=== PATIENT | male | born 1980 | race Hispanic/Latino ===

== ENCOUNTER 2017-05-07 13:24 | Emergency (ER) | payer OTHER ==
[~2017-05-07] VITALS: Ht 190.5 cm; Wt 72.6 kg
[2017-05-07 14:34] LABS: ABSOLUTE BASOPHIL COUNT 0.1 /CUMM (0.0-0.2); ABSOLUTE EOSINOPHIL COUNT 0.1 /CUMM (0.0-0.7); ABSOLUTE GRANULOCYTE CT 8.9 /CUMM (1.4-6.5); ABSOLUTE LYMPH COUNT 2.1 /CUMM (1.2-3.4); ABSOLUTE MONOCYTE COUNT 0.7 /CUMM (0.10-0.60); BASOPHIL % 0.4 % (0.0-2.0); EOSINOPHIL % 1.1 % (0-5); GRANULOCYTE % 74.9 % (42.2-75.2); HEMATOCRIT 43.6 % (42-52); MEAN CORPUSCULAR HGB 31.6 PG (27.0-31.0); MEAN CORPUSCULAR HGB CONC 33.7 G/DL (33.0-37.0); MEAN CORPUSCULAR VOLUME 93.8 FL (80.0-94.0); MEAN PLATELET VOLUME 8.1 FL (7.4-10.4); PLATELET COUNT 246 /CUMM (130-400); RBC DISTRIBUTION WIDTH 14.9 % (11.5-14.5); RED BLOOD CELL CT 4.65 /CUMM (4.70-6.10); WHITE BLOOD CELL COUNT 11.8 /CUMM (4.8-10.8)
--- NOTE | 2017-05-07 17:08 | CT SCAN REPORT ---
EXAMINATION: CT ABDOMEN AND PELVIS WITHOUT CONTRAST CLINICAL INFORMATION: Right lower back pain COMPARISON: None TECHNIQUE: Multidetector volumetric imaging was performed from the superior aspect of the liver through the pubic symphysis. Sagittal and coronal reformatted images were obtained on the technologist's workstation. DLP: 264 mGy-cm FINDINGS: LUNG BASES: The visualized lung bases are unremarkable. There is incidental skin lesion within the left posterior lateral lower back measuring approximately 8 mm. Correlate with physical exam. LIVER, GALLBLADDER, AND BILIARY TREE: The liver is normal in size, shape, and attenuation. No focal hepatic lesion or biliary ductal dilatation is present. The gallbladder is unremarkable with no evidence of radiopaque gallstones, gallbladder wall thickening, or obvious pericholecystic inflammatory changes. PANCREAS: Unremarkable. SPLEEN: Unremarkable. ADRENAL GLANDS: Unremarkable. KIDNEYS AND URETERS: The kidneys are normal in size, shape, and attenuation. No hydronephrosis, hydroureter, or calculi seen. No perinephric stranding. BLADDER: Unremarkable. GASTROINTESTINAL TRACT: The small and large bowel are unremarkable. The appendix is unremarkable. ABDOMINAL WALL: No significant hernia is appreciated. LYMPH NODES: Normal. VASCULAR: Unremarkable. PELVIC VISCERA: Unremarkable. OSSEOUS STRUCTURES: Unremarkable. IMPRESSION: No focal findings to explain patient's symptoms. Incidental left-sided skin lesion as above. Correlate with physical exam.
--- NOTE | 2017-05-07 17:32 | ED GI/GU/ABDOMINAL COMPLAINT ---
History of Present Illness General Chief Complaint: Low Back Pain/Injury Stated Complaint: LOWER BACK PAIN RADIATING TO ABDOMINAL AREA Source: patient Exam Limitations: no limitations Vital Signs & Intake/Output Vital Signs & Intake/Output Vital Signs Date Time Temp Pulse Resp B/P B/P Pulse O2 O2 Flow FiO2 Mean Ox Delivery Rate 05/07 1851 98.3 73 15 140/70 98 Room Air 05/07 1550 97.8 82 20 131/69 99 Room Air 05/07 1356 96.0 74 18 121/66 98 Room Air Room Air Allergies Coded Allergies: No Known Allergies (05/07/17) Reconcile Medications Ibuprofen 800 MG TABLET 1 TAB PO TID PRN PAIN Methocarbamol (Robaxin-750) 750 MG TABLET 1 TAB PO TID PRN PAIN Triage Note: PT TO ED WITH C/O RIGHT LOW BACK PAIN, RADIATING AROUND TO RIGHT GROIN/TESTICULAR AREA FOR 2-3 WEEKS, PAIN IS ON AND OFF. PT DENIES URINARY PROBLEMS OR PAIN, NO FEVERS, NO N/V/D. Triage Nurses Notes Reviewed? yes Onset: Gradual Duration: week(s): (2-3), changing over time, continues in ED, intermittent Timing: single episode today Quality/Severity: cramping Severity Numbers: 6 Location: groin, right flank, right lower quadrant Radiation: scrotal Activities at Onset: none Prior Abdominal Problems: none No Modifying Factors: none Modifying Factors: Worsens With: movement, palpation. Associated Symptoms: abdominal pain HPI: 36-year-old male medical history process for evaluation of pain in his right lower back right flank and right groin. Patient states her symptoms started 2 or 3 weeks ago to been intermittent. The pain will come and go. This current episode started a few days ago and has been persistent. He states that the pain radiates into his right testicle. He denies any urinary symptoms swelling or redness of the testicle. No fevers nausea vomiting or diarrhea. No trauma. The pain is worse with movement and certain positioning. He says it improves with medication BUT is not going completely. No chest pain shortness of breath no numbness or tingling. (Deep Lo) Past History Travel History Traveled to [place] past 21 day No Medical History Any Pertinent Medical History? see below for history Neurological: NONE EENT: NONE Cardiovascular: NONE Respiratory: NONE Gastrointestinal: NONE Hepatic: NONE Renal: NONE Musculoskeletal: NONE Psychiatric: NONE Endocrine: NONE Blood Disorders: NONE Cancer(s): NONE WOOL CARDER/Reproductive: NONE Surgical History Surgical History: non-contributory Psychosocial History What is your primary language Guyanese Tobacco Use: Current Daily Use Daily Tobacco Use Amount/Type: => 5 Cigarettes daily ETOH Use: occasional use Illicit Drug Use: denies illicit drug use Family History Hx Contributory? No (Deep Lo) Review of Systems Review of Systems Constitutional: Reports: no symptoms. EENTM: Reports: no symptoms. Respiratory: Reports: no symptoms. Cardiovascular: Reports: no symptoms. GI: Reports: see HPI, abdominal pain. Genitourinary: Reports: see HPI, pain. Musculoskeletal: Reports: see HPI, back pain, joint pain, muscle pain. Skin: Reports: no symptoms. Neurological/Psychological: Reports: no symptoms. Hematologic/Endocrine: Reports: no symptoms. Immunologic/Allergic: Reports: no symptoms. All Other Systems: Reviewed and Negative (Deep Lo) Physical Exam Physical Exam General Appearance: well developed/nourished, no apparent distress, alert, awake Head: atraumatic, normal appearance Eyes: Bilateral: normal appearance, PERRL, EOMI. Ears, Nose, Throat, Mouth: moist mucous membrane Neck: normal inspection, supple, full range of motion Respiratory: normal breath sounds, chest non-tender, no respiratory distress, lungs clear Cardiovascular: regular rate/rhythm, normal peripheral pulses Peripheral Pulses: 2+ radial (R), 2+ radial (L) Gastrointestinal: normal bowel sounds, soft, no organomegaly, tenderness (RT FLANK) Male Genitals: normal genitalia Back: normal inspection, normal range of motion, MILD RIGHT-SIDED LOWER BACK TENDERNESS TO PALPATION. nO MIDLINE PAIN NO BRUISING SWELLING OR ABRASIONS Extremities: normal range of motion Neurologic/Psych: no motor/sensory deficits, awake, alert, oriented x 3, normal gait Skin: intact, normal color, warm/dry Core Measures ACS in differential dx? No Sepsis Present: No Sepsis Focused Exam Completed? No (Deep Lo) Progress Differential Diagnosis: appendicitis, biliary colic, bowel obstruction, cholecystitis, gastritis, testicular torsion, ureterolithiasis, urinary retention, urethritis, UTI/pyelo Plan of Care: Orders Procedure Date/time Status Add-on Test (ER Only) 05/07 1841 Active Add-on Test (ER Only) 05/07 1602 Active CHLAMYDIA-GC DNA PROBE 05/07 143 Active URINALYSIS 05/07 1401 Complete COMPREHENSIVE METABOLIC PANEL 05/07 1401 Complete CBC WITHOUT DIFFERENTIAL 05/07 1401 Complete LIPASE 05/07 1400 Complete Laboratory Tests 05/07/17 1435: Urine Color YEL, Urine Clarity CLEAR, Urine pH 6.0, Ur Specific [place] 1.010, Urine Protein NEG, Urine Ketones NEG, Urine Nitrite NEG, Urine Bilirubin NEG, Urine Urobilinogen 0.2, Ur Leukocyte Esterase NEG, Ur Microscopic EXAM NOT REQUIRED, Urine Hemoglobin NEG, Urine Glucose NEG 05/07/17 1400: Anion Gap 11, Estimated GFR > 60, BUN/Creatinine Ratio 18.8, Glucose 85, Calcium 9.7, Total Bilirubin 0.7, AST 20, ALT 27, Alkaline Phosphatase 59, Total Protein 7.1, Albumin 4.3, Globulin 2.8, Albumin/Globulin Ratio 1.5, Lipase 38, CBC w Diff NO MAN DIFF REQ, RBC 4.65 L, MCV 93.8, MCH 31.6 H, MCHC 33.7, RDW 14.9 H , MPV 8.1, Gran % 74.9, Lymphocytes % 17.7 L, Monocytes % 5.9, Eosinophils % 1.1, Basophils % 0.4, Absolute Granulocytes 8.9 H, Absolute Lymphocytes 2.1, Absolute Monocytes 0.7 H, Absolute Eosinophils 0.1, Absolute Basophils 0.1 Microbiology 05/07 1434 URINE ROUT: GC DNA Probe - RECD 05/07 1434 URINE ROUT: Chlamydia DNA Probe (ITALO) - RECD Patient seen and evaluated. He's been having symptoms for 2 or 3 weeks now. He has pain in the right flank that radiates into his right groin and right testicle. He appears well on exam vital signs are stable. Blood work was obtained and shows a mildly elevated white blood cell count without any other abnormalities. CT scan of the abdomen and pelvis and testicular ultrasound are negative. Urine gonorrhea Chlamydia sent. Patient is feeling better after ibuprofen. The pain is reproducible with range of motion and palpation this may be muscular skeletal etiology. Patient will be treated with ibuprofen and Robaxin. Advised rest AVOID physical activity. Follow-up with primary care doctor. Discussed return precautions patient appears well he agrees. Diagnostic Imaging: Viewed by Me: CT Scan, Ultrasound. Discussed w/RAD: CT Scan, Ultrasound. Radiology Impression: PATIENT: ARMANDO FLETCHER PRESENT AGE: 36 PATIENT ACCOUNT NO: [id number] : 79 LOCATION: ER ORDERING PHYSICIAN: Deep SHIPLEY SERVICE DATE: 05/07/17 EXAM TYPE: US - US-TESTICULAR US SCROTUM CLINICAL INFORMATION: Right-sided testicular pain. COMPARISON: Abdominal CT performed earlier the same day. TECHNIQUE: A sonogram of the scrotum was performed assessing clark-scale appearance and color Doppler flow. Spectral analysis and Doppler interrogation was performed. FINDINGS: RIGHT : Right testicle measures 4.7 x 2.0 x 3.6 cm, volume 21 mL. Parenchymal echotexture is normal. No focal testicular parenchymal lesions are visualized. Normal symmetric intratesticular flow is visualized. Normal arterial and venous waveforms. Right epididymal head is normal in size. No right hydrocele or varicocele is seen. LEFT: Left testicle measures 3.7 x 2.2 x 3.7 cm, volume 24 mL. Parenchymal echotexture is normal. No focal testicular parenchymal lesions are visualized. Normal symmetric intratesticular flow is visualized. Normal arterial and venous waveforms. Left epididymal head is normal in size. No left hydrocele or varicocele is seen. IMPRESSION: Normal testicular ultrasound. There is no sonographic evidence of epididymitis and there is no sonographic evidence of testicular torsion. DICTATED BY: Glenn Peterson MD DATE/TIME DICTATED:1752 ENGINEER PROCESS:JUANY DATE/TIME TRANSCRIBED:05/07/171752 CONFIDENTIAL, DO NOT COPY WITHOUT APPROPRIATE AUTHORIZATION., PATIENT: ARMANDO FLETCHER PRESENT AGE: 36 PATIENT ACCOUNT NO: [id number] : 79 LOCATION: [facility] ORDERING PHYSICIAN: Deep SHIPLEY SERVICE DATE: 05/07/17 EXAM TYPE: CAT - CT ABD & PELVIS W/O IV CONTRAS EXAMINATION: CT ABDOMEN AND PELVIS WITHOUT CONTRAST CLINICAL INFORMATION: Right lower back pain COMPARISON: None TECHNIQUE: Multidetector volumetric imaging was performed from the superior aspect of the liver through the pubic symphysis. Sagittal and coronal reformatted images were obtained on the technologist's workstation. DLP: 264 mGy-cm FINDINGS: LUNG BASES: The visualized lung bases are unremarkable. There is incidental skin lesion within the left posterior lateral lower back measuring approximately 8 mm. Correlate with physical exam. LIVER, GALLBLADDER, AND BILIARY TREE: The liver is normal in size, shape, and attenuation. No focal hepatic lesion or biliary ductal dilatation is present. The gallbladder is unremarkable with no evidence of radiopaque gallstones, gallbladder wall thickening, or obvious pericholecystic inflammatory changes. PANCREAS: Unremarkable. SPLEEN: Unremarkable. ADRENAL GLANDS: Unremarkable. KIDNEYS AND URETERS: The kidneys are normal in size, shape, and attenuation. No hydronephrosis, hydroureter, or calculi seen. No perinephric stranding. BLADDER: Unremarkable. GASTROINTESTINAL TRACT: The small and large bowel are unremarkable. The appendix is unremarkable. ABDOMINAL WALL: No significant hernia is appreciated. LYMPH NODES: Normal. VASCULAR: Unremarkable. PELVIC VISCERA: Unremarkable. OSSEOUS STRUCTURES: Unremarkable. IMPRESSION: No focal findings to explain patient's symptoms. Incidental left-sided skin lesion as above. Correlate with physical exam. DICTATED BY: Lan Sheldon MD DATE/TIME DICTATED:05/07/171658 ENGINEER PROCESS:JUANY DATE/TIME TRANSCRIBED:1658 CONFIDENTIAL, DO NOT COPY WITHOUT APPROPRIATE AUTHORIZATION. < Electronically signed in Other Vendor System> SIGNED BY: Lan Sheldon MD [id number] Initial ED EKG: none (Deep Lo) Departure Departure Disposition: HOME OR SELF CARE Condition: Stable Clinical Impression Primary Impression: Left flank pain Referrals: Billie PIÑA,King Saucedo. Patient Has No Primary Care Dr (PCP/Family) Additional Instructions: Rest, avoid heavy lifting bending or excessive physical activity. Tylenol ibuprofen as needed for pain. Robaxin is a muscle relaxer that can also be used every 8 hours as needed for pain as May cause drowsiness. Make a follow-up with provided primary care doctor to review all results of today's visit. Monitor symptoms return with any concerns. Departure Forms: Customer Survey General Discharge Information Prescriptions: Current Visit Scripts Ibuprofen 1 TAB PO TID PRN PAIN #30 TAB Methocarbamol (Robaxin-750) 1 TAB PO TID PRN PAIN #30 TAB (Deep Lo) PA/SHAREPOINT APPLICATION DEVELOPER Co-Sign Statement Statement: ED Attending supervision documentation- [] I saw and evaluated the patient. I have also reviewed all the pertinent lab results and diagnostic results. I agree with the findings and the plan of care as documented in the PA's/SHAREPOINT APPLICATION DEVELOPER's documentation. [X] I have reviewed the ED Record and agree with the PA's/SHAREPOINT APPLICATION DEVELOPER's documentation. [] Additions or exceptions (if any) to the PAs/SHAREPOINT APPLICATION DEVELOPER's note and plan are summarized below: [] (Glenn Jovel DO)
--- NOTE | 2017-05-07 17:59 | ULTRASOUND REPORT ---
US SCROTUM CLINICAL INFORMATION: Right-sided testicular pain. COMPARISON: Abdominal CT performed earlier the same day. TECHNIQUE: A sonogram of the scrotum was performed assessing clark-scale appearance and color Doppler flow. Spectral analysis and Doppler interrogation was performed. FINDINGS: RIGHT: Right testicle measures 4.7 x 2.0 x 3.6 cm, volume 21 mL. Parenchymal echotexture is normal. No focal testicular parenchymal lesions are visualized. Normal symmetric intratesticular flow is visualized. Normal arterial and venous waveforms. Right epididymal head is normal in size. No right hydrocele or varicocele is seen. LEFT: Left testicle measures 3.7 x 2.2 x 3.7 cm, volume 24 mL. Parenchymal echotexture is normal. No focal testicular parenchymal lesions are visualized. Normal symmetric intratesticular flow is visualized. Normal arterial and venous waveforms. Left epididymal head is normal in size. No left hydrocele or varicocele is seen. IMPRESSION: Normal testicular ultrasound. There is no sonographic evidence of epididymitis and there is no sonographic evidence of testicular torsion.
[2017-05-07] MEDS ORDERED: ROBAXIN-750750 M1 PO (18:32)
[2017-05-07] MEDS ORDERED: IBUPROFEN800 M1 PO (18:32)
[2017-05-07 18:51] VITALS: BP 140/70
== END 2017-05-07 18:53 ==
LOC: ERH 13:24
PROVIDERS: Emergency Medicine
DX: R10.32 Left lower quadrant pain (principal)
CPT/HCPCS: 74176; 81003; 87491; 87591